=== PATIENT | male | born 1965 | race Caucasian/White ===

== ENCOUNTER → 2019-04-03 | Outpatient (CLI) | payer OTHER ==
[2015-08-03 02:11] VITALS: BP 145/88
[~2019-04-03] MED LIST: REGADENOSON 0.4 MG/5 ML DISP.SYRIN. IV ONE
--- NOTE | 2019-04-03 11:47 | RAD ---
MR#: [id number] Date of Study: 04/03/2019 Ordering Physician: RY NAYLOR Referring Physician: CACHORRO MOHR Tech: RT Kennedy Hu) (N) APPROVED REPORT Test Type: Pharmacological Stress Nurse/Tech: NESSA ONEAL Test Indications: CHEST PAIN Cardiac History: STENT, See Electronic Medical Record Medications: SEE EMR Medical History: SEE EMR Resting ECG: SB Resting Heart Rate: 54 bpm Resting Blood Pressure: 117/68mmHg Pretest Chest Pain: No chest pain Nurse/Tech Notes S1,S2, LUNGS CTA, DENIED CP OR SOA Consent: The procedure was explained to the patient in lay terms. Informed consent was witnessed. Kevon eout was entered into [employer]. History and Stress Test performed by RT Kennedy Bailey) (N) Pharm. Details Pharmacologic stress testing was performed using 0.4mg per 5ml of regadenoson given intravenously ove r 7-10 seconds. Stress Symptoms NO CP, SOA, OR NAUSEA POST EXERCISE Reason for Termination: Infusion complete Max HR: 96 bpm Max Blood Pressure: 136/51mmHg Blood Pressure response to exercise: Normal blood pressure response during stress. Heart Rate response to exercise: NORMAL RESPONSE TO STRESS Chest Pain: No. Arrhythmia: No. ST Change: No. INTERPRETATION Stress EKG Conclusion: The resting EKG showed a sinus rhythm with nonspecific ST-T wave changes. The stress EKG showed no significant changes from baseline. No EKG evidence of stress-induced ischemia. Imaging Protocol IMAGE PROTOCOL: Rest Tc-99m/stress Tc-99m 1 day Rest: Stress: Viability: Radiopharm.Tc99m VbtlhfdcePq88x Sestamibi Lnzi09xXv 30.2mCi Duration 13min. 13min. Img Date 04/03/2019 04/03/2019 Inj-Img [id number]. 60min. Rest Admin Site:IV - Right HandAdministrator:RT Kennedy Hu)(N) Stress Admin Site: IV - Right HandAdministrator: RT Kennedy Bailey)(N) STRESS DATA End Diast. Vol.96.0mlLVEDV index BSA47.0ml End Syst. Vol.30.0mlLVESV index BSA15.0ml Myocardial Ghwq285.0gEject. Kbfychwf96.0% Stress Scores Regional WT1.00Summed WT12.00 Regional WM0.00Summed WM0.00 LV Perfusion The stress images showed no significant defects. The rest images showed no significant defects. Nuclear imaging shows no reversible ischemia or infarct. Wall Motion Left ventricular systolic function is normal with no regional wall motion abnormalities and an ejecti on fraction of 69%. LV Perf. Quant 17 Seg. SSS1.00 17 Seg. SRS0.00 17 Seg. SDS1.00 Stress Defect Extent (% LAD)0.00Rest Defect Extent (% LAD)0.00Rev. Defect Extent (% LAD)0.00 Stress Defect Extent (% LCX) 7.50Rest Defect Extent (% LCX)0.00Rev. Defect Extent (% LCX)2.50 Stress Defect Extent (% RCA)0.00Rest Defect Extent (% RCA)0.00Rev. Defect Extent (% RCA)0.00 Stress Defect Extent (% KIRILL)1.50Rest Defect Extent (% KIRILL)0.00Rev. Defect Extent (% KIRILL)0.40 Conclusion 1. No EKG evidence of stress-induced ischemia. 2. Nuclear imaging shows no reversible ischemia or infarct. 3. Normal left ventricular systolic function with an ejection fraction of 69%. 4. Low risk Lexiscan nuclear stress test. Signed by : Leopoldo Laureano MD Electronically Approved : 04/03/2019 11:46:44
== END | disposition home or self-care (01) ==
LOC: NM 07:41
PROVIDERS: ATTEND Internal Medicine Cardiovascular Disease
DX: R07.9 Chest pain, unspecified (principal)
CPT/HCPCS: 78452; 93017; A9500; J2785